=== PATIENT | male | born 1995 | race Caucasian/White ===

== ENCOUNTER 2024-05-10 05:14 | Emergency (ER) | payer OTHER ==
[~2024-05-10] VITALS: Ht 167.6 cm; Wt 100.0 kg
[2024-05-10 05:18] VITALS: O2SAT 100
[2024-05-10 06:11] VITALS: BP 115/63; PULSE 89; RESP 18; TEMP 36.66960; O2SAT 98
== END 2024-05-10 06:12 | disposition home or self-care (01) ==
LOC: ER 05:25
DX: R53.1 Weakness (principal); T50.995A Adverse effect of other drugs, medicaments and biological substances, initial encounter; Y92.89 Other specified places as the place of occurrence of the external cause
CPT/HCPCS: 99283